=== PATIENT | male | born 1955 | race Caucasian/White ===

== ENCOUNTER 2024-07-10 13:00 | Emergency (ER) | payer OTHER ==
[~2024-07-10 13:00] MED LIST: Iopamidol 370 76% 100 ML VIAL ONE
[2024-07-10] MEDS ORDERED: Ondansetron PF 4 MG/2 ML Vial ONE (13:27)
[2024-07-10] MEDS ORDERED: Sodium Chloride 0.9% 1,000 ML ONE (13:27)
[2024-07-10] MEDS ORDERED: LevoFLOXacin 750 mg/D5W 150 ml Premix Bag ONE (13:27)
[2024-07-10 13:44] LABS: #Basophils 0.1 thou/uL (0.0-0.2); #Lymphocytes 0.5 thou/uL (1.20-3.40); #Monocytes 0.6 thou/uL (0.11-0.59); #Neutrophils 8.2 thou/uL (1.40-6.50); %Basophils 0.7 % (0.0-1.0); %Lymphocytes 5.3 % (21.0-51.0); %Monocytes 6.7 % (0.0-10.0); %Neutrophils 87.3 % (42.0-75.0); Hemoglobin 12.7 g/dL (14.0-18.0); Mean Corpuscular HGB CONC 35.4 g/dL (32.0-36.0); Mean Corpuscular Hemoglobin 30.7 pg (27.0-31.0); Mean Corpuscular Volume 86.8 fl (78.0-98.0); Mean Platelet Volume 7.8 fL (7.4-10.4); Platelet Count 166 10x3/uL (130-400); RBC Distribution Width 11.6 % (11.5-14.5); Red Blood Cell (RBC) Count 4.15 mill/uL (4.70-6.10); White Blood Cell (WBC) Count 9.3 10x3/uL (4.8-10.8)
[2024-07-10 13:59] LABS: ALT (SGPT) 23 U/L (8-55); AST (SGOT) 31 U/L (5-34); Alkaline Phosphatase 46 U/L (40-110); Anion Gap 17 mmol/L (10-20); BUN (Urea Nitrogen) 16 mg/dL (8.4-25.7); Bilirubin, Total 0.5 mg/dL (0.2-1.2); Calc. Creatinine Clearance 0 mL/min (70-130); Calcium 8.1 mg/dL (7.8-10.44); Carbon Dioxide 20 mmol/L (23-31); Chloride 91 mmol/L (98-107); Estimated GFR 70; Glucose 266 mg/dL (80-115); Lipase 11 U/L (8-78); Potassium 2.9 mmol/L (3.5-5.1); Sodium 125 mmol/L (136-145)
[2024-07-10 14:56] LABS: Bilirubin Small (Negative); Blood, Urine Large (Negative); Clarity Slightly Cloudy (Clear); Glucose, Urine (Dipstick) 250 mg/dL (Negative); Ketone, Urine 80 mg/dL (Negative); Leukocyte Negative (Negative); Nitrite Negative (Negative); Protein, Urine (Dipstick) > or equal to 300 mg/dL (Neg-Trace); Specific Gravity, Urine 1.025 (1.005-1.030); Urobilinogen 0.2 mg/dL (Less than 2); pH, Urine 5.5 (5.0-9.0)
[2024-07-10 15:04] LABS: Anion Gap 14 mmol/L (10-20); BUN (Urea Nitrogen) 15 mg/dL (8.4-25.7); Calc. Creatinine Clearance 0 mL/min (70-130); Carbon Dioxide 22 mmol/L (23-31); Chloride 93 mmol/L (98-107); Sodium 126 mmol/L (136-145)
[2024-07-10 15:05] LABS: Calcium 7.4 mg/dL (7.8-10.44); Estimated GFR 86; Glucose 240 mg/dL (80-115); Magnesium 1.4 mg/dL (1.6-2.6)
[2024-07-10 15:07] LABS: Bacteria/HPF 2+ HPF (None Seen); CAUTI Indications for Culture Dysuria,urgency,freq; Epithelial Cast 0-3 LPF (None Seen); Mucous/LPF 1+ LPF (<2+); Squamous Epithelial 0-3 HPF (0-3); WBC/HPF 21-50 HPF (0-3)
[2024-07-10 15:09] LABS: Urine Culture Reflex Yes Yes
[2024-07-10 15:13] LABS: Critical Call Chemistry NAV.CM12@1514; Potassium 2.6 mmol/L (3.5-5.1)
[2024-07-10] MEDS ORDERED: Magnesium 2 GM/50 ML BAG (IN WATER) ONE (15:13)
[2024-07-10] MEDS ORDERED: Potassium Chloride 10 MEQ/100 ML PREMIX BAG ONE ×2 (15:13→16:16)
[2024-07-10] MEDS ORDERED: Calcium Gluc 4.6 MEQ/10 ML (100 MG/ML) ONE (16:08)
[2024-07-10] MEDS ORDERED: Acetaminophen 325 MG TAB ONE (16:35)
== END 2024-07-10 17:07 | disposition short-term general hospital (02) ==
LOC: NAV ERS 13:00
DX: E87.1 Hypo-osmolality and hyponatremia (principal); I48.91 Unspecified atrial fibrillation; R19.7 Diarrhea, unspecified; E83.51 Hypocalcemia; N39.0 Urinary tract infection, site not specified; R11.2 Nausea with vomiting, unspecified; R50.9 Fever, unspecified; I10 Essential (primary) hypertension; E11.9 Type 2 diabetes mellitus without complications; Z55.6 Problems related to health literacy; Z79.899 Other long term (current) drug therapy; Z79.84 Long term (current) use of oral hypoglycemic drugs; Z79.82 Long term (current) use of aspirin; Z79.4 Long term (current) use of insulin
CPT/HCPCS: 36415; 71045; 74177; 80053; 81001; 83605; 83690; 83735; 83880; 83930; 83935; 84300; 85025; 87040; 87077; 87086; 87186; 93005; 96365; 96366; 96367; 96368; 96375; J0612; J1956; J2405; J3475; J3480; J7030; Q9967